=== PATIENT | female | born 1985 | race Caucasian/White ===

== ENCOUNTER 2017-02-18 09:44 | Emergency (ER) | payer MEDICAID ==
[~2017-02-18] VITALS: Ht 157.5 cm; Wt 78.0 kg
[~2017-02-18 09:44] MED LIST: BROMFED DM COU118 ML PO; FLEXERIL10 MG PO; FLONASE 50 MCG16 GM; FOLIC ACID 1MG T1 MG PO; HYDROCODONE BIT1 T39 PO; LEVOTHYROXINE0.05 MG NG; METHOTREXATE 22.5 MG PO; NAPROSYN500 M1 PO; PREDNISONE 20MG20 MG PO; PREDNISONE 5MG.5 MG PO; PRENATAL PLUS1 TA1 PO; SYNTHROID0.025 MG PO; TRAMADOL50 M1 PO; VITAMIN D31000 IU PO; ZYRTEC ALLERGY10 MG PO
--- OUTSIDE RECORDS SUMMARY | 2017-02-18 09:50 | External Medical Summary Rpt | CCD ---
Author Author , TAY DSOUZA Address Unknown Phone [email or web address] Purpose Continuity of Care Document - 09-27-2011 through 2016 Problems Code Diagnosis DOS Provider Status M25.461 EFFUSION, RIGHT KNEE Results Labs Lab Lab Date Result Refere Interp Status Commen Order Detail nces retati t Range on Streptococcus pyogenes Ag [Presence] in Unspecified specimen (12-06-2016 13:05) Strepto NOT NOTDETE complet coccus 0[address] ed pyogene 13:05 D s Ag [Presen ce] in Unspeci fied specime n CRP SerPl-mCnc (08-01-2016 16:41) CRP 1.0 0-0.9 complet SerPl-m 017 mg/dL ed Cnc 16:41 ESR Bld Qn (08-01-2016 16:41) ESR Bld 30 0-20 complet Qn 017 mm/hr ed 16:41
--- OUTSIDE RECORDS SUMMARY | 2017-02-18 09:50 | External Medical Summary Rpt | CCD ---
Demographics Preferred Language Icelandic Marital Status Unknown Pentecostalism Affiliation Unknown Race Unknown Ethnic Group Unknown Author Author , LIANNA DSOUZA Address Unknown Phone Immunization No patient found.
--- OUTSIDE RECORDS SUMMARY | 2017-02-18 09:50 | External Medical Summary Rpt | CCD ---
Author Author , ATY DSOUZA Address Unknown Phone [email or web address] Purpose Continuity of Care Document - 09-27-2011 [...]
--- OUTSIDE RECORDS SUMMARY | 2017-02-18 09:50 | External Medical Summary Rpt | CCD ---
Author Author [employer] Organization [employer] Address Unknown Phone Unavailable Purpose Continuity of Care Document - through 2016
--- OUTSIDE RECORDS SUMMARY | 2017-02-18 09:50 | External Medical Summary Rpt | CCD ---
Demographics Preferred Language Maldivian Marital Status Unknown Hoahaoism Affiliation Unknown Race Unknown Ethnic Group Unknown Author Author , LIANNA DSOUZA Address Unknown Phone Immunization No patient found.
--- OUTSIDE RECORDS SUMMARY | 2017-02-18 09:51 | External Medical Summary Rpt ---
Author Author LIANNA Obed, LI[employer]NA [employer] Address Unknown Phone Unavailable Results Streptococcus pyogenes Ag [Presence] in Unspecified specimen Observa Value Referen Units Interpr Notes Date tion ce etation Range Strepto NOT NOTDETE No No LOT # Dec 06 coccus DETECTE CTED informa informa EXP 2017 pyogene D tion in tion in DATE 1:05 PM s Ag source source [Presen data data ce] in Unspeci fied specime n Comprehensive metabolic 2000 panel in Serum or Plasma Observa Value Referen Units Interpr Notes Date tion ce etation Range Albumin/G 1.1 - 1.8 No Normal No Nov 30 lobulin informati informati 2017 4:10 [Mass on in on in PM ratio] in source source Serum or data data Plasma Albumin 3.4 - 5.0 gm/dL Normal No Nov 30 [Mass/vol informati 2017 4:10 ume] in on in PM Serum or source Plasma data Alkaline 46 - 116 U/L Normal No Nov 30 phosphata informati 2017 4:10 se on in PM [Enzymati source c data activity/ volume] in Serum or Plasma Bilirubin 0.2 - 1.0 mg/dL Normal No Nov 30 .total informati 2017 4:10 [Mass/vol on in PM ume] in source Serum or data Plasma Urea 7 - 18 mg/dL Normal No Nov 30 nitrogen informati 2017 4:10 [Mass/vol on in PM ume] in source Serum or data Plasma Calcium 8.5 - mg/dL Normal No Nov 30 [Mass/vol 10.1 informati 2017 4:10 ume] in on in PM Serum or source Plasma data Chloride 98 - 107 mmoL/L Normal No Nov 30 [Moles/vo informati 2017 4:10 lume] in on in PM Serum or source Plasma data Carbon 21.0 - mmoL/L Normal No Nov 30 dioxide, 32.0 informati 2017 4:10 total on in PM [Moles/vo source lume] in data Serum or Plasma Creatinin 0.55 - mg/dL Normal No Nov 30 e 1.02 inform2016 4:10 [Mass/vol on in PM ume] in source Serum or data Plasma Estimated 59- ML/MIN No REFERENCE Nov 30 informati RANGE: 2016 4:10 glomerula on in >60 PM r source ML/MIN/1. filtratio data 73 SQUARE n rate METERSIf (GF this patient is -A merican, then multiply theresult by 1.210. Globulin 1.3 - 3.2 gm/dL High No Nov 30 [Mass/vol informati 2016 4:10 ume] in on in PM Serum source data Glucose 74 - 106 mg/dL Normal No Nov 30 [Mass/vol informati 2016 4:10 ume] in on in PM Serum or source Plasma data Potassium 3.5 - 5.1 mmoL/L Normal No Nov 302016 4:10 [Moles/vo on in PM lume] in source Serum or data Plasma Sodium 136 - 145 mmoL/L Normal No Nov 30 [Moles/vo 2016 4:10 lume] in on in PM Serum or source Plasma data Aspartate 15 - 37 U/L Normal No Nov 30 inform2016 4:10 aminotran on in PM sferase source [Enzymati data c activity/ volume] in Serum or Plasma Alanine 12 - 78 U/L Normal No Nov 30 aminotran 2016 4:10 sferase on in PM [Enzymati source c data activity/ volume] in Serum or Plasma Protein 6.4 - 8.2 gm/dL Normal No Nov 30 [Mass/vol informati 2016 4:10 ume] in on in PM Serum or source Plasma data Thyroxine (T4) free [Mass/volume] in Serum or Plasma Observa Value Referen Units Interpr Notes Date tion ce etation Range Thyroxine 0.76 - ng/dL Normal No Nov 30 (T4) 1.46 informati 2016 4:10 free on in PM [Mass/vol source ume] in data Serum or Plasma Thyrotropin [Units/volume] in Serum or Plasma Observa Value Referen Units Interpr Notes Date tion ce etation Range Thyrotrop 0.358 - uIU/ml No No Nov 30 in 3.740 informati informati 2016 4:10 [Units/vo on in on in PM lume] in source source Serum or data data Plasma CBC W Auto Differential panel in Blood Observa Value Referen Units Interpr Notes Date tion ce etation Range Basophils 0 - 0.2 K/MM3 Normal No Nov 30 informati 2016 4:10 [#/volume on in PM ] in source Blood by data Automated count Basophils 0.1 - 2.0 % Normal No Nov 30 /100 informati 2017 4:10 leukocyte on in PM s in source Blood by data Automated count Eosinophi 0.0 - 0.4 K/mm3 Normal No Nov 30 ls informati 2016 4:10 [#/volume on in PM ] in source Blood by data Automated count Eosinophi 0.1 - % Normal No Nov 30 ls/100 12.0 informati 2017 4:10 leukocyte on in PM s in source Blood by data Automated count Granulocy 1.8 - 7.8 K/mm3 High No Nov 30 jurgen informati 2017 4:10 [#/volume on in PM ] in source Blood by data Automated count Granulocy 37.0 - % High No Nov 30 jurgen/100 80.0 informati 2016 4:10 leukocyte on in PM s in source Blood by data Automated count Hematocri 37.0 - % Normal No Nov 30 t [Volume 47.0 informati 2017 4:10 on in PM Fraction] source of Blood data Hemoglobi 12.2 - g/dL Normal No Nov 30 n 16.2 informati 2017 4:10 [Mass/vol on in PM ume] in source Blood data Lymphocyt 0.7 - 4.5 K/mm3 Normal No Nov 30 es informati 2017 4:10 [#/volume on in PM ] in source Unspecifi data ed specimen by Automated count Lymphocyt 10 - 50.0 % Normal No Nov 30 es informati 2016 4:10 [#/volume on in PM ] in source Unspecifi data ed specimen by Automated count Erythrocy 27 - 31.2 pg Normal No Nov 30 te mean informati 2017 4:10 corpuscul on in PM ar source hemoglobi data n [Entitic mass] Erythrocy 31.8 - g/dl Normal No Nov 30 te mean 35.4 informati 2017 4:10 corpuscul on in PM ar source hemoglobi data n concentra tion [Mass/vol ume] by Automated count Erythrocy 82.2 - fl Normal No Nov 30 te mean 97.8 informati 2016 4:10 corpuscul on in PM ar volume source [Entitic data volume] by Automated count Monocytes 0.1 - 1.0 K/mm3 Normal No Nov 30 informati 2016 4:10 [#/volume on in PM ] in source Blood by data Automated count Monocytes 1.7 - 9.3 % Normal No Nov 30 /100 informati 2016 4:10 leukocyte on in PM s in source Blood by data Automated count Platelet 7.4 - fl Normal No Nov 30 mean 10.4 informati 2016 4:10 volume on in PM [Entitic source volume] data in Blood by Automated count Platelets 142 - 424 K/mm3 Normal No Nov 30 informati 2016 4:10 [#/volume on in PM ] in source Blood data Erythrocy 4.2 - 5.4 M/mm3 Normal No Nov 30 jurgen informati 2016 4:10 [#/volume on in PM ] in source Amniotic data fluid Erythrocy 11.5 - % Normal No Nov 30 te 17.5 informati 2016 4:10 distribut on in PM ion width source [Entitic data volume] by Automated count Leukocyte 4.8 - K/MM3 Normal No Nov 30 s 10.8 informati 2016 4:10 [#/volume on in PM ] in source Blood data Comprehensive metabolic 2000 panel in Serum or Plasma Observa Value Referen Units Interpr Notes Date tion ce etation Range Albumin/G 1.1 - 1.8 No Low No Nov 02 lobulin informati informati 2016 2:52 [Mass on in on in PM ratio] in source source Serum or data data Plasma Albumin 3.4 - 5.0 gm/dL Normal No Nov 02 [Mass/vol informati 2016 2:52 ume] in on in PM Serum or source Plasma data Alkaline 46 - 116 U/L Normal No Nov 02 phosphata informati 2016 2:52 se on in PM [Enzymati source c data activity/ volume] in Serum or Plasma Bilirubin 0.2 - 1.0 mg/dL Normal No Nov 02 .total informati 2016 2:52 [Mass/vol on in PM ume] in source Serum or data Plasma Urea 7 - 18 mg/dL Normal No Nov 02 nitrogen informati 2016 2:52 [Mass/vol on in PM ume] in source Serum or data Plasma Calcium 8.5 - mg/dL Normal No Nov 02 [Mass/vol 10.1 informati 2016 2:52 ume] in on in PM Serum or source Plasma data Chloride 98 - 107 mmoL/L Normal No Nov 02 [Moles/vo informati 2016 2:52 lume] in on in PM Serum or source Plasma data Carbon 21.0 - mmoL/L Normal No Nov 02 dioxide, 32.0 informati 2016 2:52 total on in PM [Moles/vo source lume] in data Serum or Plasma Creatinin 0.55 - mg/dL Normal No Nov 02 e 1.02 informati 2016 2:52 [Mass/vol on in PM ume] in source Serum or data Plasma Estimated 59- ML/MIN No REFERENCE Nov 02 informati RANGE: 2017 2:52 glomerula on in >60 PM r source ML/MIN/1. filtratio data 73 SQUARE n rate METERSIf (GF this patient is -A merican, then multiply theresult by 1.210. Globulin 1.3 - 3.2 gm/dL High No Nov 02 [Mass/vol informati 2016 2:52 ume] in on in PM Serum source data Glucose 74 - 106 mg/dL Normal No Nov 02 [Mass/vol informati 2016 2:52 ume] in on in PM Serum or source Plasma data Potassium 3.5 - 5.1 mmoL/L Normal No Nov 02 inform2016 2:52 [Moles/vo on in PM lume] in source Serum or data Plasma Sodium 136 - 145 mmoL/L Normal No Nov 02 [Moles/vo informati 2016 2:52 lume] in on in PM Serum or source Plasma data Aspartate 15 - 37 U/L Normal No Nov 02 informati 2016 2:52 aminotran on in PM sferase source [Enzymati data c activity/ volume] in Serum or Plasma Alanine 12 - 78 U/L Normal No Nov 02 aminotran informati 2016 2:52 sferase on in PM [Enzymati source c data activity/ volume] in Serum or Plasma Protein 6.4 - 8.2 gm/dL Normal No Nov 02 [Mass/vol informati 2016 2:52 ume] in on in PM Serum or source Plasma data CBC W Auto Differential panel in Blood Observa Value Referen Units Interpr Notes Date tion ce etation Range Basophils 0 - 0.2 K/MM3 Normal No Nov 02 informati 2016 2:52 [#/volume on in PM ] in source Blood by data Automated count Basophils 0.1 - 2.0 % Normal No Nov 02 informati 2016 2:52 leukocyte on in PM s in source Blood by data Automated count Eosinophi 0.0 - 0.4 K/mm3 Normal No Nov 02 ls informati 2016 2:52 [#/volume on in PM ] in source Blood by data Automated count Eosinophi 0.1 - % Normal No Nov 02 ls/100 12.0 informati 2016 2:52 leukocyte on in PM s in source Blood by data Automated count Granulocy 1.8 - 7.8 K/mm3 Normal No Nov 02 jurgen informati 2016 2:52 [#/volume on in PM ] in source Blood by data Automated count Granulocy 37.0 - % Normal No Nov 02 jurgen/100 80.0 informati 2016 2:52 leukocyte on in PM s in source Blood by data Automated count Hematocri 37.0 - % Normal No Nov 02 t [Volume 47.0 informati 2016 2:52 on in PM Fraction] source of Blood data Hemoglobi 12.2 - g/dL Normal No Nov 02 n 16.2 informati 2016 2:52 [Mass/vol on in PM ume] in source Blood data Lymphocyt 0.7 - 4.5 K/mm3 Normal No Nov 02 es informati 2016 2:52 [#/volume on in PM ] in source Unspecifi data ed specimen by Automated count Lymphocyt 10 - 50.0 % Normal No Nov 02 es inform2016 2:52 [#/volume on in PM ] in source Unspecifi data ed specimen by Automated count Erythrocy 27 - 31.2 pg Normal No Nov 02 te mean informati 2016 2:52 corpuscul on in PM ar source hemoglobi data n [Entitic mass] Erythrocy 31.8 - g/dl Normal No Nov 02 te mean 35.4 informati 2016 2:52 corpuscul on in PM ar source hemoglobi data n concentra tion [Mass/vol ume] by Automated count Erythrocy 82.2 - fl Normal No Nov 02 te mean 97.8 informati 2016 2:52 corpuscul on in PM ar volume source [Entitic data volume] by Automated count Monocytes 0.1 - 1.0 K/mm3 Normal No Nov 02 informati 2016 2:52 [#/volume on in PM ] in source Blood by data Automated count Monocytes 1.7 - 9.3 % Normal No Nov 02 informati 2016 2:52 leukocyte on in PM s in source Blood by data Automated count Platelet 7.4 - fl Low No Nov 02 mean 10.4 informati 2016 2:52 volume on in PM [Entitic source volume] data in Blood by Automated count Platelets 142 - 424 K/mm3 Normal No Nov 02 informati 2016 2:52 [#/volume on in PM ] in source Blood data Erythrocy 4.2 - 5.4 M/mm3 Normal No Nov 02 jurgen informati 2016 2:52 [#/volume on in PM ] in source Amniotic data fluid Erythrocy 11.5 - % Normal No Nov 02 te 17.5 informati 2016 2:52 distribut on in PM ion width source [Entitic data volume] by Automated count Leukocyte 4.8 - K/MM3 Normal No Nov 02 s 10.8 informati 2016 2:52 [#/volume on in PM ] in source Blood data SCHOOL ADMISSIONS REPRESENTATIVE CASES Observa Value Referen Units Interpr Notes Date tion ce etation Range SCHOOL ADMISSIONS REPRESENTATIVE SEE No No No Sep 26 CASES BELOW informa informa informa Daughte 2011 tion in tion in tion in rs 12:08 source source source Medical PM data data data Center2 [address] seamus [facility] -[facility] SUBMITT ED: CERVICA L/VAGIN AL THIN PREPREL EVANT HISTORY : LMP Hormona l [place]....0 09/08/19 12 ....NoP rev.abn ormal.. ..YesSP ECIMEN ADEQUAC YSATISF ACTORY FOR EVALUAT IONENDO CERVICA L/TRANS FORMATI ON ZONE COMPONE NT PRESENT GENERAL CATEGOR IZATION SQUAMOU S EPITHEL IAL CELL ABNORMA LITYDES CRIPTIV E DIAGNOS ISHIGH GRADE SQUAMOU S INTRAEP ITHELIA L LESIONC ELLULAR CHANGES ENCOMPA SSING HPV EFFECTR ECOMMEN DATIONS BETHESD A RECOMME NDED MANAGEM ENT IS COLPOSC OPY WITH ENDOCER VICALEV ALUATIO N, IF CLINICA LLY INDICAT EDpeer: dmp<Sig n Out Dr. Bills re>Scre ened By : LENO MAGALLANES M.D., Patholo gistPag e 1 SCHOOL ADMISSIONS REPRESENTATIVE http:// No No No No Sep 26 CASES [email or web address]/ informa informa informa informa 2011 LIVE.as tion in tion in tion in tion in 12:08 /[employer] source source source source PM ageWebA data data data data pp_3.1/ show/I4 XkBmDlP zuDtHEe cNl5zZt NBuLcME f8BPcKg V8UY9Tc U+8jgQu jIaKJ2n tig//DL dh+jyKu [id number] cBnFQOL +Is4Fa+ Qux^REP ORT
--- OUTSIDE RECORDS SUMMARY | 2017-02-18 09:51 | External Medical Summary Rpt ---
Author Author LIANNA Obed, LIANNA [employer] Organization [employer] Address Unknown Phone Unavailable [...] in PM ] in source Blood data FINISH PRODUCTION MANAGER CASES Observa Value Referen Units Interpr Notes Date tion ce etation Range FINISH PRODUCTION MANAGER SEE No No No Sep 26 CASES BELOW informa informa informa Daughte 2011 tion in tion in tion in rs 12:08 source source source Medical PM data data data Center2 [address] seamus lopez [id number] -[facility] SUBMITT ED: CERVICA L/VAGIN AL [...] LENO MAGALLANES M.D., Patholo gistPag e 1 FINISH PRODUCTION MANAGER http:// No No No No Sep 26 CASES [email or web address]/ informa informa informa informa 2011 LIVE.as tion in tion in tion in tion in 12:08 /[employer] source source source source PM ageWebA data data data data pp_3.1/ show/I4 XkBmDlP zuDtHEe eUv3xPl NBuLcME c8NFgEu A0TU5Tr U+8jgQu lVkVB4n tig//DL dh+jyKu [id number] cBnFQOL +Is4Fa+ Qux^REP ORT
[2017-02-18] MEDS ORDERED: SINGULAIR10 MG PO (10:29)
[2017-02-18 10:41] LABS: UTC STREP SCREEN NOT DETECTED (NOTDETECTED)
[2017-02-18] MEDS ORDERED: ZITHROMAX Z-PA250 M2 PO (11:04)
[2017-02-18] MEDS ORDERED: FLONASE ALLERG9.9 ML NS (11:04)
--- NOTE | 2017-02-18 11:06 | Urgent Treatment Center Report ---
History of Present Issue Date/Time Seen by Provider 02/18/17 1101 Visit Reason Pt arrived:Walked Presenting Problem:PT IS C/O COUGH AND CHEST CONGESTION Location if Accident: Onset of symptoms date/time:/ or onset unknown for:MEDICAL HX UNKNOWN Have you (or family members/close friends) recently traveled outside the [place]? N If Yes, where/when: Have you had exposure to infectious disease within the past month? TB? Other? Specify: Source patient, RN notes reviewed Exam Limitations no limitations Comment 31-year-old female presents today for coughing up yellow sputum, nasal congestion and sinus pressure and chest congestion. ALLERGIES Coded Allergies: codeine (Intermediate, I-RASH 03/26/15) penicillin G (Intermediate, I-HIVES 03/26/15) Home Medications Reported Medications Levothyroxine Sodium (Levothyroxine) 0.05 MG NG DAILY FOLIC ACID (Folic Acid) 1 MG PO DAILY CHOLECALCIFEROL (VITAMIN D3) (Vitamin D) 1,000 IUNITS PO DAILY Cetirizine Hcl (Zyrtec) 10 MG PO DAILY Methotrexate 2.5 MG PO WEEKLY Montelukast Sodium (Singulair) 10 MG PO QHS History Medical History General CAD? No Angina: No HI: No Hypertension? No Hyperlipidemia? No CHF? No DVT? No PE? No COPD? No Asthma? Yes Anemia? No GERD? No Gastric ulcers? No GI Bleed? No Hernia? No Thyroid Problems? Yes Hypothyroidism? Yes CVA? No Seizures? No Diabetes? No Renal Insuffiency? No UTI? Yes Stones? No BPH? No GB Disease: No Nephritic Syndrome? No Asplenia? No Hepatitis? No Sickle Cell Disease? No Arthritis? Yes Migraines? No Cataracts? No Glaucoma? No MRSA? No HIV? No TB? No Anxiety? No Depression? No Cancer? No More? 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 Respiratory see HPI, cough Physical Exam Vital Signs Vital Signs Date Time Temp Pulse Resp B/P Pulse O2 O2 Flow FiO2 Ox Delivery Rate 02/18 1026 98.3 72 20 98/65 96 - WBC >12,000 or <4,000 or 10% bands? 2 or more SIRS Criteria Met? B/P:98/65 MAP:76 Creatinine >2.0? UA output<0.5ml/kg/hr for 2 hrs? Platelet count >100,000? Lactate >2.0mmol/1? INR >1.2 or PTT > than 60 sec? Evidence of Organ Dysfunction? Provider documented clinical suspician of infection? Sepsis Criteria Count: 1 Sepsis Risk: General Appearance normal appearance, no apparent distress Eye Exam - bilateral eye normal exam, bilateral eye PERRL, bilateral eye EOMI Ear, Nose, Throat hearing grossly normal, normal ENT inspection, normal pharynx, sinus pain/drainage, nasal congestion Neck normal inspection, full range of motion Respiratory Status Yes: trachea midline, chest symmetrical, non tender chest. No: respiratory distress. Lung Sounds bilateral: normal breath sounds, lungs clear. Cardiovascular normal exam, regular rate/rhythm Neurologic alert, normal exam, oriented x 3 Medical Decision Making LABS/Meds/Orders Pt receiving controlled substance in ED? No Results/Orders Laboratory Tests 02/18/17 1006: Influenza Type A Ag NOT DETECTED, Influenza Type B Ag NOT DETECTED, Group A Strep Screen NOT DETECTED Orders Procedure Date/time Status [facility] STREP SCREEN 02/18 1006 Complete [place] FLU A,B 02/18 1006 Complete Departure Departure Time of Disposition 1103 Disposition DC Home or Self Care(routine) Clinical Impression Primary Impression: Bronchitis Condition STABLE Patient Instructions Acute Bronchitis Additional Instructions Antibiotics as ordered See PCP this week if no improvement Return or be seen in the ER symptoms worsen or do not improve Discharge Counseling Counseled pt/family regarding diagnosis, test results, medications/RX, home care, follow up needs Prescriptions Current Visit Scripts Azithromycin (Zithromax) 250 MG PO DAILY #6 TAB USE DIRECTED. Fluticasone Propionate (Flonase Allergy Relief) 9.9 ML NS DAILY 14 Days at 1106
[2017-02-18 11:07] VITALS: BP 98/65
== END 2017-02-18 11:08 | disposition home or self-care (01) ==
LOC: UTC 09:44
PROVIDERS: Nurse Practitioner Family
DX: J20.9 Acute bronchitis, unspecified (principal); J45.909 Unspecified asthma, uncomplicated; E03.9 Hypothyroidism, unspecified; Z87.891 Personal history of nicotine dependence; Z88.5 Allergy status to narcotic agent; Z91.010 Allergy to peanuts; Z79.899 Other long term (current) drug therapy